=== PATIENT | female | born 1995 | race Caucasian/White ===

== ENCOUNTER 2018-08-20 23:21 | Emergency (ER) | payer MEDICAID ==
[2018-08-21] MEDS: FAMOTIDINE 20 MG TAB PO (04:45)
[2018-08-21] MEDS: DIPHENHYDRAMINE 50 MG INJ IM (04:45)
[2018-08-21] MEDS: ONDANSETRON (ODT) 4 MG TAB ODT (04:45)
[2018-08-21] MEDS: DEXAMETHASONE 10 MG/ML 1 ML INJ IM (04:46)
[2018-08-21 05:06] LABS: ADD UMIC YES; UR ASCORBIC ACID NEGATIVE (NEGATIVE); UR BILIRUBIN (Dip) NEGATIVE (NEGATIVE); UR BLOOD (Dip) 1+ mg/dL (NEGATIVE); UR CLARITY SLIGHTLY CLOUDY (CLEAR); UR COLOR YELLOW (YELLOW); UR GLUCOSE (Dip) NEGATIVE (NEGATIVE); UR KETONES (Dip) NEGATIVE (NEGATIVE); UR LEUKOCYTE ESTERASE (Dip) 1+ Leu/ul (NEGATIVE); UR MUCUS FEW /HPF (NONE SEEN); UR NITRITE (Dip) NEGATIVE (NEGATIVE); UR RBC 5 /HPF (0-5); UR SPECIFIC GRAVITY (Dip) 1.025 (1.003-1.030); UR SQUAMOUS EPITHELIAL CELL FEW /HPF (FEW); UR TOTAL PROTEIN (Dip) NEGATIVE (NEGATIVE); UR UROBILINOGEN (Dip) 2+ mg/dL (NEGATIVE); UR WBC 20 /HPF (0-5)
[2018-08-21] MEDS: KETOROLAC 30 MG INJ IM (07:07)
== END 2018-08-21 07:07 | disposition home or self-care (01) ==
LOC: FTE 23:21
DX: R21 Rash and other nonspecific skin eruption (principal); N39.0 Urinary tract infection, site not specified; S30.0XXA Contusion of lower back and pelvis, initial encounter; W19.XXXA Unspecified fall, initial encounter; Y92.9 Unspecified place or not applicable
CPT/HCPCS: 72220; 81001; 81025; 96372; 99284-25